=== PATIENT | male | born 1975 | race Caucasian/White ===

== ENCOUNTER 2024-10-12 16:56 | Emergency (ER) | payer SELFPAY ==
[2024-10-12 17:03] VITALS: BP 158/105; PULSE 76; RESP 18; TEMP 36.3; O2SAT 98
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
[2024-10-12 17:50] LABS: Basophils Absolute Auto 0.07 K/uL (0.00-0.30); Basophils Percent Auto 0.8 % (0.0-3.0); Eosinophils Absolute Auto 0.15 K/uL (0.00-0.50); Eosinophils Percent Auto 1.8 % (0.0-7.0); Hematocrit 44.3 % (37.0-53.0); Hemoglobin* 14.7 gm/dL (13.5-17.5); Immature Granulocytes Abs Auto 0.02 K/uL (0.00-0.30); Immature Granulocytes Pct Auto 0.2 %; Mean Corpuscular HGB Conc 33 gm/dL (32-36); Mean Corpuscular Hemoglobin 28 pg (26-34); Mean Corpuscular Volume 84 fL (80-100); Neutrophils Percent Auto 72.2 % (42.0-72.0); Platelet Count* 236 K/uL (140-440); RDW Coefficient of Variation % 13.8 % (11.5-15.5); Red Blood Count 5.26 m/uL (4.30-5.90); Slide Review Reflex No
[2024-10-12 18:11] LABS: Chloride* 103 mmol/L (96-114)
[2024-10-12 18:12] LABS: Potassium* 3.8 mmol/L (3.6-5.1); Sodium* 140 mmol/L (135-149)
[2024-10-12 18:14] LABS: Anion Gap 14 mEq/L (7-15); Blood Urea Nitrogen* 11 mg/dL (5-24); Carbon Dioxide* 23 mmol/L (20-32); Creatinine* 0.7 mg/dL (0.5-1.5); Estimated Glomerular Filt Rate 114 ml/min
[2024-10-12 18:15] LABS: Calcium* 9.3 mg/dL (8.4-10.6); Ethanol* 0.28 % (0.01-0.03); Glucose* 112 mg/dL (60-115)
== END 2024-10-12 19:38 | disposition home or self-care (01) ==
PROVIDERS: Emergency Provider Emergency Medicine Emergency Medical Services
DX: S01.311A Laceration without foreign body of right ear, initial encounter (principal); S01.111A Laceration without foreign body of right eyelid and periocular area, initial encounter; V86.65XA Passenger of 3- or 4- wheeled all-terrain vehicle (ATV) injured in nontraffic accident, initial encounter
CPT/HCPCS: 12011; 36415; 70450; 72125; 76604; 76705; 80048; 82077; 85025; 93308; 99284; 99285; 99291; G0390